=== PATIENT | female | born 1945 | race Caucasian/White ===

== ENCOUNTER 2020-01-03 19:55 | Inpatient (IN) ==
[2020-01-03] MEDS ORDERED: SODIUM CHLORIDE 0.9% 1000ML 1,000 ML IV ONE ×2 (20:30→23:22)
--- NOTE | 2020-01-03 20:33 | Emergency Department Note ---
History of Present Illness General Chief complaint: Illness Stated complaint: FEVER, ABD PAIN, NAUSEA FOR 9-10 DAYS Time Seen by Provider: 01/03/20 20:07 Source: patient and family Mode of arrival: ambulatory Limitations: no limitations History of Present Illness Provider complaint: Fever, nausea and vomiting, fatigue Onset (ago): day(s) (11) Maximum Pain Intensity: 5 Relieved By: + none Exacerbated By: + movement Associated symptoms: + fever/chills, + loss of appetite, + malaise, + nausea/vomiting and + weakness; no chest pain and no shortness of breath Treatments prior to arrival: none There is a 74-year-old female who presents from home complaining of 11 days of worsening weakness, nausea, and fevers. Patient states in this 11-day interim she has been seen at the [facility] emergency room twice as well as by her family doctor twice. She states she has had multiple rounds of lab work as well as imaging. Patient did have a negative coronavirus test, however has a second 1 pending as a precaution by her PCP. Patient states her daughter is concerned given her persistent illness and brought her here tonight. Patient states she did have one episode of vomiting today. Patient states despite being on antibiotics for what she was told was a urinary tract infection, she has had persistent fevers. Patient states the fevers are daily, waxing and waning, however had not been as high as what they were prior to the initiation of antibiotics. Patient states she has been taking cefdinir 300 mg twice a day. Pt seen during a time of high acuity and national emergency pandemic while wearing PPE. Home Medications Home Medications Medication Instructions Recorded Confirmed Type escitalopram oxalate [Lexapro] 10 mg PO DAILY 01/03/20 01/03/20 History ondansetron HCl [Zofran] 4 mg PO Q8H 01/03/20 01/03/20 History Allergies Allergy/AdvReac Type Severity Reaction Status Date / Time No Known Allergies Allergy Unverified 01/03/20 20:34 Past Med/Surg History Social History Preferred Language: Guatemalan Communication Ability: Effective Resistor Winder Required: No Beliefs That Will Affect Care: None marital status: Current Living Situation: Spouse Current Living Situation Comment: home with spouse Other Information That Helps Us Care for You: Yes (Tested for covid twice) Feels Safe at Home: Yes Safety Concerns: Feels Safe At This Time Smoking Status: Never smoker Do You Dip or Chew Tobacco: No ; Second Hand Exposure: Yes ; Tobacco Cessation Education Requested by Patient: No Hx Alcohol Use: No Hx Substance Use: No Review of Systems See HPI for pertinent positives & negatives. and A total of 10 systems reviewed and were otherwise negative Physical Exam Vital Signs Vital Signs - 24 hr 01/03/20 22:41 Pulse Rate [Apical] 96 H Pulse Rhythm [Apical] Regular Pulse Strength [Apical] Normal Respiratory Rate 16 Respiratory Effort / Characteristics Non-Labored Respiratory Depth Normal Respiratory Pattern Regular Blood Pressure [Left Arm] 101/54 L Blood Pressure Mean [Left Arm] 69 Blood Pressure Position [Left Arm] Lying Pulse Oximetry 96 Oxygen Delivery Method Room Air GENERAL: alert, ill appearing, well nourished, no distress, non-toxic EYE EXAM: normal conjunctiva, PERRL and EOM's grossly intact OROPHARYNX: no exudate, no erythema, lips, buccal mucosa, and tongue normal and mucous membranes are moist NECK: supple, no nuchal rigidity, no adenopathy, non-tender LUNGS: Clear to auscultation. Normal chest wall mechanics, no w/r/r HEART: no murmurs, S1 normal and S2 normal ABDOMEN: abdomen soft, non-tender, normo-active bowel sounds, no masses, no rebound or guarding. BACK: Back is symmetrical on inspection and there is no deformity, no midline tenderness, no CVA tenderness. SKIN: no rashes and no bruising UPPER EXTREMITIES: upper extremities are grossly normal. FROM, nml pulses b/l. LOWER EXTREMITIES: No pitting edema. FROM, nml pulses b/l. NEURO EXAM: Normal sensorium, cranial nerves II-XII grossly intact, normal speech, no gross weakness of arms, no gross weakness of legs. Gross sensation intact. 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 2099: Discussed recent symptoms and care with daughter. 2149: Pt and daughter updated on results and are in agreement with plan for additional inpatient evaluation and mgmt. patient just had CT angiography of the chest performed yesterday during her ER visit which was negative for PE. No mention of pericardial effusion. No lymphadenopathy, no aneurysm or dissection. CT of the abdomen and pelvis was also performed which had no acute findings. 2211: Case discussed with Dr. Oliveros for additional inpatient management. Administered Medications Escitalopram Oxalate (Lexapro Tab) 10 mg PO DAILY MARJAN Stop: 02/03/20 08:59 Last Admin: 01/04/20 08:07 Dose: 10 mg Documented by: [id number] Potassium Chloride/Dextrose/Sod Cl (D5nss + 20meq Kcl) 20 meq in 1,000 mls @ 125 mls/hr IV .Q8H MARJAN Stop: 02/02/20 23:29 Last Admin: 01/04/20 20:52 Dose: 125 mls/hr Documented by: [id number] Infusion: 01/04/20 20:31 Dose: 125 mls/hr Documented by: [id number] Infusion: 01/04/20 13:15 Dose: 125 mls/hr Documented by: [id number] Infusion: 01/04/20 12:09 Dose: 0 mls/hr Documented by: [id number] Admin: 01/04/20 11:25 Dose: 125 mls/hr Documented by: [id number] Infusion: 01/04/20 11:05 Dose: 125 mls/hr Documented by: [id number] Infusion: 01/04/20 09:20 Dose: 125 mls/hr Documented by: [id number] Infusion: 01/04/20 08:05 Dose: 0 mls/hr Documented by: [id number] Admin: 01/04/20 01:50 Dose: 125 mls/hr Documented by: [id number] Doxycycline Hyclate 100 mg/ (Dextrose) 110 mls @ 50 mls/hr IV Q12H MARJAN Stop: 01/18/20 01:59 Last Infusion: 01/04/20 16:23 Dose: 0 mls/hr Documented by: [id number] Admin: 01/04/20 14:08 Dose: 50 mls/hr Documented by: [id number] Infusion: 01/04/20 04:44 Dose: 0 mls/hr Documented by: [id number] Admin: 01/04/20 02:32 Dose: 50 mls/hr Documented by: [id number] Ceftriaxone Sodium 2,000 mg/ (Dextrose) 70 mls @ 100 mls/hr IV Q24H MARJAN; Protocol Stop: 01/14/20 01:59 Last Infusion: 01/04/20 02:34 Dose: 0 mls/hr Documented by: [id number] Admin: 01/04/20 01:52 Dose: 100 mls/hr Documented by: [id number] Acetaminophen (Ofirmev) 1,000 mg in 100 mls @ 400 mls/hr IV Q8H PRN PRN Reason: Pain or Fever Stop: 01/07/20 03:47 Last Infusion: 01/04/20 05:01 Dose: 0 mls/hr Documented by: [id number] Admin: 01/04/20 04:46 Dose: 400 mls/hr Documented by: [id number] Discontinued Medications Sodium Chloride (Nss 1000ml) 1,000 mls @ 999 mls/hr IV .Q1H1M ONE Stop: 01/03/20 21:30 Last Infusion: 01/03/20 22:43 Dose: 0 mls/hr Documented by: [id number] Admin: 01/03/20 21:51 Dose: 999 mls/hr Documented by: [id number] Sodium Chloride (Nss 1000ml) 1,000 mls @ 125 mls/hr IV .Q8H MARJAN Stop: 02/02/20 21:44 Last Infusion: 01/04/20 01:16 Dose: 0 mls/hr Documented by: [id number] Infusion: 01/04/20 01:16 Dose: 0 mls/hr Documented by: [id number] Admin: 01/03/20 22:38 Dose: 125 mls/hr Documented by: [id number] Prochlorperazine (Compazine) 1 mls @ 1 mls/min IV ONE ONE Stop: 01/03/20 22:03 Last Admin: 01/03/20 22:38 Dose: 1 mls/min Documented by: [id number] Sodium Chloride (Nss 1000ml) 1,000 mls @ 999 mls/hr IV .Q1H1M ONE Stop: 01/04/20 00:22 Last Infusion: 01/04/20 00:23 Dose: 0 mls/hr Documented by: [id number] Admin: 01/03/20 23:22 Dose: 999 mls/hr Documented by: [id number] Potassium Chloride (K Jameel / Wtr) 10 meq in 100 mls @ 100 mls/hr IV Q1H STA Stop: 01/04/20 00:27 Last Infusion: 01/04/20 01:26 Dose: 0 mls/hr Documented by: [id number] Admin: 01/04/20 00:26 Dose: 100 mls/hr Documented by: [id number] Sodium Chloride (Nss 1000ml) 1,000 mls @ 999 mls/hr IV .Q1H1M ONE Stop: 01/04/20 08:58 Last Infusion: 01/04/20 09:19 Dose: 0 mls/hr Documented by: [id number] Admin: 01/04/20 08:05 Dose: 999 mls/hr Documented by: [id number] Sodium Chloride (Nss 1000ml) 1,000 mls @ 999 mls/hr IV .Q1H1M ONE Stop: 01/04/20 12:36 Last Infusion: 01/04/20 13:17 Dose: 0 mls/hr Documented by: [id number] Admin: 01/04/20 12:09 Dose: 999 mls/hr Documented by: [id number] Prochlorperazine 5 mg/ Syringe 5 mls @ 5 mls/min IV ONE ONE Stop: 01/04/20 17:46 Last Admin: 01/04/20 18:13 Dose: 5 mls/min Documented by: [id number] Potassium Chloride (Klor-Con M20) 40 meq PO NOW STA Stop: 01/03/20 21:34 Last Admin: 01/03/20 22:38 Dose: 40 meq Documented by: [id number] Medical Decision Making Differential Diagnosis Differential diagnosis: Etiologies such as viral syndrome, otitis, pharyngitis, pneumonia, influenza, meningitis, urinary tract infection, sepsis, bacteremia, as well as others were entertained. Medical Records Attestation: I reviewed the patient's medical records. Home Medications Current Medication List: was personally reviewed by me Laboratory Data Attestation: I reviewed the patient's lab results. Result diagrams: 01/04/20 07:21 01/04/20 07:21 Lab Results 01/03/20 01/03/20 01/03/20 Range/Units 20:50 20:50 20:50 WBC 8.81 (4.8-10.8) K/uL RBC 3.03 L (4.2-5.4) M/uL Hgb 9.2 L (12.0-16.0) g/dL Hct 27.0 L (37-47) % MCV 89.1 (80-100) fL MCH 30.4 (25-34) pg MCHC 34.1 (32-36) g/dL RDW Std Deviation 55.7 H (36.4-46.3) fL RDW Coeff of Issa 17.0 H (11.5-14.5) % Plt Count 153 (130-400) K/uL MPV 9.9 (7.4-10.4) fL Immature Gran % (Auto) 0.5 % Neut % (Auto) 87.3 % Lymph % (Auto) 7.9 % Gilliam % (Auto) 4.1 % Eos % (Auto) 0.0 % Baso % (Auto) 0.2 % Neut # (Auto) 7.69 H (1.4-6.5) K/uL Lymph # (Auto) 0.70 L (1.2-3.4) K/uL Gilliam # (Auto) 0.36 (0.11-0.59) K/uL Eos # (Auto) 0.00 (0-0.5) K/uL Baso # (Auto) 0.02 (0-0.2) K/uL Immature Gran # (Auto) 0.04 H (0.00-0.02) K/uL PT 12.4 H (9.0-12.0) Seconds INR 1.2 H (0.9-1.1) APTT 30.2 (21.0-31.0) Seconds PTT Ratio 1.1 Sodium 136 (136-145) mmol/L Potassium 3.0 L (3.5-5.1) mmol/L Chloride 104 (98-107) mmol/L Carbon Dioxide 23 (21-32) mmol/L Anion Gap 9.0 (3-11) BUN 16 (7-18) mg/dl Creatinine 1.07 (0.6-1.2) mg/dl Est Cr Clr Drug Dosing Not Reportable Est GFR ( Amer) 58.8 Est GFR (Non-Af Amer) 50.7 BUN/Creatinine Ratio 14.5 (10-20) Glucose 81 (70-99) mg/dl Lactate (0.4-2.0) mmol/L Calcium 8.1 L (8.5-10.1) mg/dl Magnesium 2.0 (1.8-2.4) mg/dl Total Bilirubin 1.1 H (0.2-1) mg/dl AST 140 H (15-37) U/L ALT 87 H (12-78) U/L Alkaline Phosphatase 175 H (45-117) U/L Troponin I 0.057 H* (0-0.045) ng/ml Total Protein 7.3 (6.4-8.2) gm/dl Albumin 2.2 L (3.4-5.0) gm/dl Globulin 5.1 H (2.5-4.0) gm/dl Albumin/Globulin Ratio 0.4 L (0.9-2) Lipase (73-393) U/L Procalcitonin (0-0.5) ng/ml TSH (0.300-4.500) uIu/ml Free T4 (0.8-1.6) ng/dl Urine Color Urine Appearance (Clear) Urine pH (4.5-7.5) Ur Specific [place] (1.000-1.030) Urine Protein (Negative) Urine Glucose (UA) (Negative) Urine Ketones (Negative) Urine Blood (Negative) Urine Nitrite (Negative) Urine Bilirubin (Negative) Urine Urobilinogen (Negative) Ur Leukocyte Esterase (Negative) Urine WBC (Auto) (0-5) /hpf Urine RBC (Auto) (0-4) /hpf U Hyaline Cast (Auto) (0-5) /lpf U Epithel Cells (Auto) (0-5) /lpf Urine Bacteria (Auto) (Negative) Ur Renal Epithelial Cell Amorphous Sediment (None Prsent) Urine Yeast Anaplasma Smear See Comment A Anaplasma Comment Pos for Anaplasma Lyme Disease IgG Ab (Negative) Lyme Disease IgM Ab (Negative) 01/03/20 01/03/20 01/03/20 Range/Units 20:50 20:50 20:50 WBC (4.8-10.8) K/uL RBC (4.2-5.4) M/uL Hgb (12.0-16.0) g/dL Hct (37-47) % MCV (80-100) fL MCH (25-34) pg MCHC (32-36) g/dL RDW Std Deviation (36.4-46.3) fL RDW Coeff of Issa (11.5-14.5) % Plt Count (130-400) K/uL MPV (7.4-10.4) fL Immature Gran % (Auto) % Neut % (Auto) % Lymph % (Auto) % Gilliam % (Auto) % Eos % (Auto) % Baso % (Auto) % Neut # (Auto) (1.4-6.5) K/uL Lymph # (Auto) (1.2-3.4) K/uL Gilliam # (Auto) (0.11-0.59) K/uL Eos # (Auto) (0-0.5) K/uL Baso # (Auto) (0-0.2) K/uL Immature Gran # (Auto) (0.00-0.02) K/uL PT (9.0-12.0) Seconds INR (0.9-1.1) APTT (21.0-31.0) Seconds PTT Ratio Sodium (136-145) mmol/L Potassium (3.5-5.1) mmol/L Chloride (98-107) mmol/L Carbon Dioxide (21-32) mmol/L Anion Gap (3-11) BUN (7-18) mg/dl Creatinine (0.6-1.2) mg/dl Est Cr Clr Drug Dosing Est GFR ( Amer) Est GFR (Non-Af Amer) BUN/Creatinine Ratio (10-20) Glucose (70-99) mg/dl Lactate (0.4-2.0) mmol/L Calcium (8.5-10.1) mg/dl Magnesium (1.8-2.4) mg/dl Total Bilirubin (0.2-1) mg/dl AST (15-37) U/L ALT (12-78) U/L Alkaline Phosphatase (45-117) U/L Troponin I (0-0.045) ng/ml Total Protein (6.4-8.2) gm/dl Albumin (3.4-5.0) gm/dl Globulin (2.5-4.0) gm/dl Albumin/Globulin Ratio (0.9-2) Lipase (73-393) U/L Procalcitonin 21.36 H (0-0.5) ng/ml TSH 0.273 L (0.300-4.500) uIu/ml Free T4 1.53 (0.8-1.6) ng/dl Urine Color Urine Appearance (Clear) Urine pH (4.5-7.5) Ur Specific [place] (1.000-1.030) Urine Protein (Negative) Urine Glucose (UA) (Negative) Urine Ketones (Negative) Urine Blood (Negative) Urine Nitrite (Negative) Urine Bilirubin (Negative) Urine Urobilinogen (Negative) Ur Leukocyte Esterase (Negative) Urine WBC (Auto) (0-5) /hpf Urine RBC (Auto) (0-4) /hpf U Hyaline Cast (Auto) (0-5) /lpf U Epithel Cells (Auto) (0-5) /lpf Urine Bacteria (Auto) (Negative) Ur Renal Epithelial Cell Amorphous Sediment (None Prsent) Urine Yeast Anaplasma Smear Anaplasma Comment Lyme Disease IgG Ab Negative (Negative) Lyme Disease IgM Ab Negative (Negative) 01/03/20 01/03/20 01/03/20 Range/Units 20:50 21:36 22:40 WBC (4.8-10.8) K/uL RBC (4.2-5.4) M/uL Hgb (12.0-16.0) g/dL Hct (37-47) % MCV (80-100) fL MCH (25-34) pg MCHC (32-36) g/dL RDW Std Deviation (36.4-46.3) fL RDW Coeff of Issa (11.5-14.5) % Plt Count (130-400) K/uL MPV (7.4-10.4) fL Immature Gran % (Auto) % Neut % (Auto) % Lymph % (Auto) % Gilliam % (Auto) % Eos % (Auto) % Baso % (Auto) % Neut # (Auto) (1.4-6.5) K/uL Lymph # (Auto) (1.2-3.4) K/uL [place]illi[place] # (Auto) (0.11-0.59) K/uL Eos # (Auto) (0-0.5) K/uL Baso # (Auto) (0-0.2) K/uL Immature Gran # (Auto) (0.00-0.02) K/uL PT (9.0-12.0) Seconds INR (0.9-1.1) APTT (21.0-31.0) Seconds PTT Ratio Sodium (136-145) mmol/L Potassium (3.5-5.1) mmol/L Chloride (98-107) mmol/L Carbon Dioxide (21-32) mmol/L Anion Gap (3-11) BUN (7-18) mg/dl Creatinine (0.6-1.2) mg/dl Est Cr Clr Drug Dosing Est GFR ( Amer) Est GFR (Non-Af Amer) BUN/Creatinine Ratio (10-20) Glucose (70-99) mg/dl Lactate 1.8 (0.4-2.0) mmol/L Calcium (8.5-10.1) mg/dl Magnesium (1.8-2.4) mg/dl Total Bilirubin (0.2-1) mg/dl AST (15-37) U/L ALT (12-78) U/L Alkaline Phosphatase (45-117) U/L Troponin I (0-0.045) ng/ml Total Protein (6.4-8.2) gm/dl Albumin (3.4-5.0) gm/dl Globulin (2.5-4.0) gm/dl Albumin/Globulin Ratio (0.9-2) Lipase 196 (73-393) U/L Procalcitonin (0-0.5) ng/ml TSH (0.300-4.500) uIu/ml Free T4 (0.8-1.6) ng/dl Urine Color Dark Yellow Urine Appearance Cloudy A (Clear) Urine pH 5.5 (4.5-7.5) Ur Specific [place] 1.030 (1.000-1.030) Urine Protein 2+ H (Negative) Urine Glucose (UA) Negative (Negative) Urine Ketones Trace H (Negative) Urine Blood 1+ H (Negative) Urine Nitrite Negative (Negative) Urine Bilirubin 1+ H (Negative) Urine Urobilinogen Negative (Negative) Ur Leukocyte Esterase Trace H (Negative) Urine WBC (Auto) 10-30 H (0-5) /hpf Urine RBC (Auto) 0-4 (0-4) /hpf U Hyaline Cast (Auto) 1-5 (0-5) /lpf U Epithel Cells (Auto) >30 H (0-5) /lpf Urine Bacteria (Auto) Negative (Negative) Ur Renal Epithelial Cell Not Reportable Amorphous Sediment Present A (None Prsent) Urine Yeast Not Reportable Anaplasma Smear Anaplasma Comment Lyme Disease IgG Ab (Negative) Lyme Disease IgM Ab (Negative) Imaging Data Radiologist's Impression: SINGLE VIEW CHEST CLINICAL HISTORY: Sepsis. FINDINGS: An AP, portable, upright chest radiograph is obtained. No prior studies are available for comparison at the time of dictation. The examination is degraded by portable technique and patient rotation. The heart is enlarged. The pulmonary vasculature is noncongested. Mild atelectasis is seen at the lung bases. No airspace consolidation or large pleural effusion is identified. No pneumothorax is seen. The skeletal structures are osteopenic. The bony thorax is grossly intact. IMPRESSION: Cardiomegaly with no active disease in the chest. ACT 112: Negative or not required by law. Electronically signed by: Sagar England M.D. 01/03/2020 9:53 PM ECG Data Attestation: I personally reviewed and interpreted this ECG as follows: Indication: + weakness Rate (beats per minute): 93 Rhythm: + normal sinus ECG Intervals/blocks: + Normal QRS and + Normal QT ECG [place]: + Normal ECG ST segments: + Normal ST segments Comparison ECG Date: from (01/02/2020) Blood Pressure Blood Pressure Findings: Normal blood pressure MDM Narrative This is elderly female who presents the emergency room complaining of worsening symptoms over the last 11 days. Patient has been seen and evaluated both in another ER as well as by her outpatient PCP. Patient continues to feel worse. Patient has been on cefdinir for a presumed UTI. I was able to review some records, and I did discuss these with her daughter who is also present as she is concerned. Patient found to have an elevated troponin here. Patient has had 2- outpatient coronavirus test. I did add a Lyme which was negative. Anaplasmosis was sent in addition and is pending at the time my discussion with the hospitalist. Patient with no evidence of acute CHF, no EKG changes and no history of coronary artery disease. I do not suspect ACS, or PE. Patient has had increased anemia recently and has been undergoing outpatient evaluation. Patient did have recent EGD and is scheduled for additional outpatient colonosco py. It is unclear if worsening anemia is creating demand ischemia causing an elevated troponin. Patient initially hypotensive here, however did respond to IV fluid bolus. Patient otherwise remained hemodynamically stable in the emergency room. Given abnormal findings and concern for worsening condition and failed outpatient treatment, case discussed with hospitalist. I am not convinced that patient did have a UTI that was contributing to her symptoms as the UA that I found in the EMR was not convincing, an outpatient urine culture was contaminated. I discussed all results with the patient and her daughter and they were in agreement with the plan for additional inpatient management. I do not suspect acute vascular emergency. No evidence of bacteremia/sepsis. An order was placed for continuous cardiac monitoring. The monitor shows a rate of 80_ with _normal sinus rhythm. Impression & Plan Fever, Elevated troponin, Generalized weakness, Abnormal LFTs, Anemia, Acute hypotension Discharge Plan Visit Data *Final* Discharge Date/Time: 01/04/20 01:09 Chief Complaint: Illness Stated Complaint: FEVER, ABD PAIN, NAUSEA FOR 9-10 DAYS ED Provider: Leanna Rea Discharge Problem: Fever, Elevated troponin, Generalized weakness, Abnormal LFTs, Anemia, Acute hypotension Patient Disposition: Admitted As Inpatient Discharge Instructions Interventions: ED Discharge Assessment Last Done: 01/04/20 01:09 Discharge Problem: Fever Qualifiers: Fever type: due to other condition Qualified Code(s): R50.81 - Fever presenting with conditions classified elsewhere Anemia Qualifiers: Anemia type: unspecified type Qualified Code(s): D64.9 - Anemia, unspecified
[2020-01-03 21:06] LABS: Basophils # (auto) 0.02 K/uL (0-0.2); Basophils % (auto) 0.2 %; Hemoglobin 9.2 g/dL (12.0-16.0); Immature Granulocytes # (auto) 0.04 K/uL (0.00-0.02); Immature Granulocytes % (auto) 0.5 %; Lymphocytes % (auto) 7.9 %; Mean Corpuscular Hemoglobin 30.4 pg (25-34); Mean Corpuscular Hgb Conc 34.1 g/dL (32-36); Mean Corpuscular Volume 89.1 fL (80-100); Mean Platelet Volume 9.9 fL (7.4-10.4); Monocytes # (auto) 0.36 K/uL (0.11-0.59); Monocytes % (auto) 4.1 %; Neutrophils # (auto) 7.69 K/uL (1.4-6.5); Neutrophils % (auto) 87.3 %; Platelet Count 153 K/uL (130-400); RDW Standard Deviation 55.7 fL (36.4-46.3); Red Blood Count 3.03 M/uL (4.2-5.4); White Blood Count 8.81 K/uL (4.8-10.8)
[2020-01-03 21:18] LABS: INR 1.2 (0.9-1.1); Partial Thromboplastin Ratio 1.1; Partial Thromboplastin Time 30.2 Seconds (21.0-31.0); Prothrombin Time 12.4 Seconds (9.0-12.0)
[2020-01-03 21:24] LABS: Alanine Aminotransferase 87 U/L (12-78); Albumin Level 2.2 gm/dl (3.4-5.0); Aspartate Aminotransferase 140 U/L (15-37); BUN Creatinine Ratio 14.5 (10-20); Blood Urea Nitrogen 16 mg/dl (7-18); Calcium 8.1 mg/dl (8.5-10.1); Carbon Dioxide 23 mmol/L (21-32); Chloride 104 mmol/L (98-107); Est GFR (African American) 58.8; Est GFR (Non-African American) 50.7; Glucose 81 mg/dl (70-99); Sodium 136 mmol/L (136-145)
[2020-01-03] MEDS ORDERED: POTASSIUM CHLORIDE 20 MEQ TABCR PO STA (21:33)
[2020-01-03 21:36] LABS: Albumin Globulin Ratio 0.4 (0.9-2); Alkaline Phosphatase 175 U/L (45-117); Bilirubin,Total 1.1 mg/dl (0.2-1); Globulin 5.1 gm/dl (2.5-4.0); Total Protein 7.3 gm/dl (6.4-8.2); Troponin I 0.057 ng/ml (0-0.045)
[2020-01-03] MEDS ORDERED: SODIUM CHLORIDE 0.9% 1000ML 1,000 ML IV SCH (21:45)
[2020-01-03 21:52] LABS: Thyroid Stimulating Hormone 0.273 uIu/ml (0.300-4.500)
--- NOTE | 2020-01-03 21:55 | XRay Report ---
SINGLE VIEW CHEST CLINICAL HISTORY: Sepsis. FINDINGS: An AP, portable, upright chest radiograph is obtained. No prior studies are available for c omparison at the time of dictation. The examination is degraded by portable technique and patient rot ation. The heart is enlarged. The pulmonary vasculature is noncongested. Mild atelectasis is seen at the lung bases. No airspace consolidation or large pleural effusion is identified. No pneumothorax i s seen. The skeletal structures are osteopenic. The bony thorax is grossly intact. IMPRESSION: Cardiomegaly with no active disease in the chest. ACT 112: Negative or not required by law. Electronically signed by: Sagar England M.D. 01/03/2020 9:53 PM
[2020-01-03 21:57] LABS: Lyme Ab IgG w/WB Rflx Negative (Negative); Lyme Ab IgM w/WB Rflx Negative (Negative)
[2020-01-03] MEDS ORDERED: PROCHLORPERAZINE 1 ML IV ONE (22:02)
[2020-01-03 22:05] LABS: T4 Free Thyroxine 1.53 ng/dl (0.8-1.6)
[2020-01-03 23:05] LABS: Appearance Urine Cloudy (Clear); Bacteria Urine Automated Negative (Negative); Blood Urine 1+ (Negative); Color Urine Dark Yellow; Epithelial Cell Urine Auto >30 /lpf (0-5); Glucose Urine UA Negative (Negative); Ketones Urine Trace (Negative); Leukocyte Esterase Urine Trace (Negative); Nitrite Urine Negative (Negative); Protein Urine 2+ (Negative); RBC Urine Automated 0-4 /hpf (0-4); Urobilinogen Urine Negative (Negative); pH Urine 5.5 (4.5-7.5)
[2020-01-03 23:12] LABS: Bilirubin Urine 1+ (Negative)
[2020-01-03] MEDS ORDERED: POTASSIUM CHLORIDE / WTR 10 MEQ/100 ML PLCT IV STA (23:28)
[2020-01-04 00:03] LABS: Amorphous Sediment Urine Present (None Prsent)
[2020-01-04] MEDS ORDERED: ACETAMINOPHEN 325 MG TAB PO PRN (01:16)
[2020-01-04] MEDS ORDERED: NITROGLYCERIN SL 0.4 MG/TAB TAB SL PRN (01:16)
[2020-01-04 01:29] LABS: Anaplasmosis Smear(Rpt to DOH) Pos for Anaplasma
[2020-01-04] MEDS: D5NSS + 20MEQ KCL 20 MEQ/1,000 ML BAG IV SCH ×4 (01:50→23:38)
[2020-01-04] MEDS: cefTRIAXone SODIUM 2,000 MG in DEXTROSE 5% 50 ML IV SCH (01:52)
--- NOTE | 2020-01-04 02:12 | History and Physical Report ---
DATE OF ADMISSION: 01/03/2020 CHIEF COMPLAINT: Fevers, not feeling well. HISTORY OF PRESENT ILLNESS: This is a 74-year-old female with past medical history significant for osteoporosis, depression, comes because of last 11 days she is having fever every day, some days high, some days low, highest was 104 degrees. She went to the [facility] a couple of times on 12/27/2019 and 01/02/2020. Her COVID test on 12/27/2019 was negative and she had another test done last Sunday with her PCP, but results are still pending. There is question of some UTI and she was started on antibiotic on last visit to [facility]. The patient still has headaches, shortness of breath on exertion, very nauseous, not eating anything, some abdominal discomfort. No diarrhea, no burning micturition, no blood in the stools. No earache, no runny nose, no sore throat, no dysphagia, no loss of sense of smell or taste. No exposure to COVID patients. [place]. [place], but she never goes outside except for the backyard. Denies any tick bites. Her lab work done at [facility]. Her platelets were 109 on 12/31/2019 and her LFTs are slightly elevated. She has some petechial rash in the abdomen. Imaging studies also done in [facility], CT of the chest and CT abdomen and pelvis were unremarkable. As she was not getting better, she came here. Currently, she is afebrile. She also had leukopenia of 3.0 on labs on December 26 that has improved. Platelets are improved.Today her INR is 1.2. Her total bilirubin 1.1, AST 140, ALT 87, alkaline phosphatase 175 and troponin is 0.05. Procalcitonin was 21.3. Urine is slightly positive for leukocyte esterase. Chest x-ray, no acute disease. ALLERGIES: No known drug allergies. PAST MEDICAL HISTORY: As mentioned above. PAST SURGICAL HISTORY: Breast lesion excision, EGDs. MEDICATIONS: Lexapro 10 mg p.o. daily, Zofran 4 mg p.o. q. 8 hours p.r.n. FAMILY HISTORY: Not in file. SOCIAL HISTORY: . No smoking. No alcohol, no drug use. REVIEW OF SYMPTOMS: As per HPI. Rest of review of symptoms negative. PHYSICAL EXAMINATION: GENERAL: The patient is of moderate build, not in acute distress. VITAL SIGNS: Temperature 37.5, pulse 96, respiratory rate 16, blood pressure 101/54, oxygen 96% room air. HEENT: No pallor, no icterus. Pupils equal, round, reactive to light. Oral mucosa dry. NECK: No JVD, no neck masses. CARDIOVASCULAR: S1, S2 heard, regular rate and rhythm, no murmur, no gallop. RESPIRATORY SYSTEM: Normal AP diameter. No accessory muscle use. No wheezing, no crackles. ABDOMEN: Soft, bowel sounds present. Mild discomfort. No guarding, no rigidity. No distention. CENTRAL NERVOUS SYSTEM: Cranial nerves II-XII grossly intact. Nonfocal. EXTREMITIES: No edema, no erythema. SKIN: Mild petechial rash seen in the abdomen. LABORATORY DATA: WBC 8.8, hemoglobin 9.2, hematocrit 27, platelets 153. PT 12.4, INR 1.2, APTT 30.2. Sodium 136, potassium 3, chloride 104, bicarbonate 23, BUN 16, creatinine 1.07, serum glucose 81. Lactate 1.8, calcium 8.1, total bilirubin 1.1, AST 140, ALT 87, alkaline phosphatase is 175. Troponin I 0.05. Lipase 196. Procalcitonin 21.3. TSH 0.2, free T4 1.5. Urinalysis cloudy, +2 protein, trace ketones, trace leukocyte esterase. Lyme screen, IgG and IgM negative. IMAGING: Chest x-ray: No acute disease in the chest. EKG: Normal sinus rhythm, rate of 93, no acute ST changes seen. ASSESSMENT AND PLAN: This is a 74-year-old female who presents with ongoing fever since last 10-11 days. 1. Ongoing illness with fever for the last 10-11 days, nausea, not feeling well: COVID test done on 12/27/2019 was negative, another test done last Sunday is pending. No exposure to COVID. No loss of sense of smell or taste. Initial lab work done in [place] showed her leukopenia and thrombocytopenia. Her AST and ALT is also elevated, looks like she lives in the wooded area , though she does not go outside except her yard. Most likely tick-borne illnesses, we empirically started on IV Rocephin and IV doxycycline. We will continue airborne isolation precautions until the recent COVID test comes back. Monitor in the med/tele. 2. Mild elevation of troponin: EKG unremarkable, most likely secondary to ongoing infectious process. We will follow serial enzymes, echocardiogram and consult cardiology for further recommendations. 3. Hypokalemia: Will replace. 4. Depression: Continue Lexapro. 5. Deep venous thrombosis prophylaxis: Sequential compression devices. DISPOSITION: Admit to med/tele. Expect discharge home and follow with family doctor. Level 1 full code. 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 MTDD
[2020-01-04] MEDS: DOXYCYCLINE HYCLATE 100 MG in DEXTROSE 5% 100 ML IV SCH ×2 (02:32→14:08)
[2020-01-04] MEDS ORDERED: ACETAMINOPHEN 1,000 MG/100 ML VIAL IV PRN (03:48)
[2020-01-04 07:58] LABS: Basophils # (auto) 0.01 K/uL (0-0.2); Basophils % (auto) 0.1 %; Hematocrit (blood only) 22.3 % (37-47); Hemoglobin 7.5 g/dL (12.0-16.0); Immature Granulocytes # (auto) 0.03 K/uL (0.00-0.02); Immature Granulocytes % (auto) 0.4 %; Lymphocytes # (auto) 1.01 K/uL (1.2-3.4); Lymphocytes % (auto) 14.8 %; Mean Corpuscular Hemoglobin 30.4 pg (25-34); Mean Corpuscular Hgb Conc 33.6 g/dL (32-36); Mean Corpuscular Volume 90.3 fL (80-100); Mean Platelet Volume 10.6 fL (7.4-10.4); Monocytes # (auto) 0.42 K/uL (0.11-0.59); Monocytes % (auto) 6.1 %; Neutrophils # (auto) 5.37 K/uL (1.4-6.5); Neutrophils % (auto) 78.6 %; Platelet Count 132 K/uL (130-400); RDW Coefficient of Variation 17.1 % (11.5-14.5); RDW Standard Deviation 56.5 fL (36.4-46.3); Red Blood Count 2.47 M/uL (4.2-5.4); White Blood Count 6.84 K/uL (4.8-10.8)
[2020-01-04] MEDS ORDERED: SODIUM CHLORIDE 0.9% 1000ML 1,000 ML IV ONE ×2 (07:58→11:36)
[2020-01-04] MEDS: ESCITALOPRAM OXALATE 10 MG TAB PO SCH (08:07)
[2020-01-04 08:28] LABS: RBC Morphology Unremarkable
[2020-01-04 08:29] LABS: BUN Creatinine Ratio 13.5 (10-20); Calcium 7.4 mg/dl (8.5-10.1); Creatinine Clr Calc Pharmacy 39.6 ml/min; Est GFR (African American) 66.2; Est GFR (Non-African American) 57.1; Potassium 3.5 mmol/L (3.5-5.1)
--- NOTE | 2020-01-04 11:32 | Hospitalist Progress Note ---
Date of Service January 04, 2020 Assessment & Plan (1) Fever: (2) Generalized weakness: (3) Abnormal LFTs: Febrile illness Leukopenia noted at previous ER visit at [facility] resolved Elevated LFT Initial results show positive test to anasplasma Continue ceftriazone and doxycycline Patient currently hypotensive during evaluation. Will give IVF resuscitation and move patient to PCU for closer monitoring Will continue to reassess Based on my discussion with patient and daughter as noted above and recent COVID test, isolation will be discontinued. Follow up blood cultures and outstanding results (4) Elevated troponin: History and EKG not suggestive of ACS I also discussed this with [employer] Agent Will get 2D echo and monitor (5) Depression: Continue home lexapro (6) Anemia: Baseline Hb from review of previous blood work on [facility] is 9 Hb on admission is 9.2 Currently 7.5 this AM. Likely febrile illness + dilutional as patient has received over 3L IVF and all cell lines dropped Will monitor Transfuse PRN to keep Hb >7 (7) DVT prophylaxis: SCD for now Admission and Anticipated Discharge Date Admission Date: January 03, 2020 Subjective Patient seen and examined Reports malaise, mild dyspnea on moderate exertion and weakness Fever episode this AM 39.4 at 4;45am Denied any chest pain, cough, palpitation Reports no headache or nausea at this time. Denied any URI symptoms Denied any abd pain at this time Reported some watery diarrhea this AM Review of [facility] records showed COVID test from 12/27/2019 was negative. Spoke with daughter on the phone who reported that patient has not traveled, been visited since that test. She stated that her PCP sent another COVID after that because they were not sure what was causing her fevers. Patient also acknowledged that she has not been visited by anyone since previous testing and only stayed at home with her / Physical Exam Constitutional: + well hydrated; no acute distress Eyes: PERRL, conjunctivae normal, anicteric sclerae ENMT: external ear and nose normal, oropharynx normal Respiratory: normal respiratory effort, lungs clear to auscultation Cardiovascular: RRR, S1 S2, no pedal edema Gastrointestinal (Abdomen): normal bowel sounds, soft, nontender, no hepatosplenomegaly Neurologic: PERRL, EOMI, accommodation nl, no face palsy, no dysarthria Psychiatric: A+Ox3, euthymic affect Results & Data Results & Data ([facility]) Vital Signs (Past 12 Hours) Vital Signs Temp Pulse Pulse Resp BP BP BP 01/04/20 08:20 90 01/04/20 07:58 37.0 C 86 17 76/44 L 96/41 L 01/04/20 06:29 37.2 C 01/04/20 04:45 39.4 C H 109 H 24 93/57 L 01/04/20 01:30 104 H 01/04/20 01:16 01/04/20 01:09 96 H 18 96/51 L 01/04/20 01:00 37.6 C H 103 H 16 97/59 L Pulse Ox Pulse Ox 01/04/20 08:20 01/04/20 07:58 91 01/04/20 06:29 01/04/20 04:45 90 01/04/20 01:30 01/04/20 01:16 95 01/04/20 01:09 93 01/04/20 01:00 95 Laboratory Results Laboratory Results - last 24 hr 01/03/20 01/03/20 01/03/20 20:50 20:50 20:50 WBC 8.81 RBC 3.03 L Hgb 9.2 L Hct 27.0 L MCV 89.1 MCH 30.4 MCHC 34.1 RDW Std Deviation 55.7 H RDW Coeff of Issa 17.0 H Plt Count 153 MPV 9.9 Immature Gran % (Auto) 0.5 Neut % (Auto) 87.3 Lymph % (Auto) 7.9 [place] % (Auto) 4.1 Eos % (Auto) 0.0 Baso % (Auto) 0.2 Neut # (Auto) 7.69 H Lymph # (Auto) 0.70 L [place] # (Auto) 0.36 Eos # (Auto) 0.00 Baso # (Auto) 0.02 Immature Gran # (Auto) 0.04 H RBC Morphology Peripher Smr Path Cons Pending PT 12.4 H INR 1.2 H APTT 30.2 PTT Ratio 1.1 Sodium 136 Potassium 3.0 L Chloride 104 Carbon Dioxide 23 Anion Gap 9.0 BUN 16 Creatinine 1.07 Est Cr Clr Drug Dosing Not Reportable Est GFR ( Amer) 58.8 Est GFR (Non-Af Amer) 50.7 BUN/Creatinine Ratio 14.5 Glucose 81 Lactate Calcium 8.1 L Magnesium 2.0 Total Bilirubin 1.1 H AST 140 H ALT 87 H Alkaline Phosphatase 175 H Troponin I 0.057 H* Total Protein 7.3 Albumin 2.2 L Globulin 5.1 H Albumin/Globulin Ratio 0.4 L Lipase Procalcitonin TSH Free T4 Urine Color Urine Appearance Urine pH Ur Specific [place] Urine Protein Urine Glucose (UA) Urine Ketones Urine Blood Urine Nitrite Urine Bilirubin Urine Urobilinogen Ur Leukocyte Esterase Urine WBC (Auto) Urine RBC (Auto) U Hyaline Cast (Auto) U Epithel Cells (Auto) Urine Bacteria (Auto) Ur Renal Epithelial Cell Amorphous Sediment Urine Yeast Anaplasma Smear See Comment A Anaplasma Comment Pos for Anaplasma Lyme Disease IgG Ab Lyme Disease IgM Ab E. chaffeensis IgG Ab E. chaffeensis IgM Ab E. chaffeensis Interp E. chaffeensis Comment 01/03/20 01/03/20 01/03/20 20:50 20:50 20:50 WBC RBC Hgb Hct MCV MCH MCHC RDW Std Deviation RDW Coeff of Issa Plt Count MPV Immature Gran % (Auto) Neut % (Auto) Lymph % (Auto) [place] % (Auto) Eos % (Auto) Baso % (Auto) Neut # (Auto) Lymph # (Auto) [place] # (Auto) Eos # (Auto) Baso # (Auto) Immature Gran # (Auto) RBC Morphology Peripher Smr Path Cons PT INR APTT PTT Ratio Sodium Potassium Chloride Carbon Dioxide Anion Gap BUN Creatinine Est Cr Clr Drug Dosing Est GFR ( Amer) Est GFR (Non-Af Amer) BUN/Creatinine Ratio Glucose Lactate Calcium Magnesium Total Bilirubin AST ALT Alkaline Phosphatase Troponin I Total Protein Albumin Globulin Albumin/Globulin Ratio Lipase Procalcitonin 21.36 H TSH 0.273 L Free T4 1.53 Urine Color Urine Appearance Urine pH Ur Specific [place] Urine Protein Urine Glucose (UA) Urine Ketones Urine Blood Urine Nitrite Urine Bilirubin Urine Urobilinogen Ur Leukocyte Esterase Urine WBC (Auto) Urine RBC (Auto) U Hyaline Cast (Auto) U Epithel Cells (Auto) Urine Bacteria (Auto) Ur Renal Epithelial Cell Amorphous Sediment Urine Yeast Anaplasma Smear Anaplasma Comment Lyme Disease IgG Ab Negative Lyme Disease IgM Ab Negative E. chaffeensis IgG Ab E. chaffeensis IgM Ab E. chaffeensis Interp E. chaffeensis Comment 01/03/20 01/03/20 01/03/20 20:50 20:50 21:36 WBC RBC Hgb Hct MCV MCH MCHC RDW Std Deviation RDW Coeff of Issa Plt Count MPV Immature Gran % (Auto) Neut % (Auto) Lymph % (Auto) [place] % (Auto) Eos % (Auto) Baso % (Auto) Neut # (Auto) Lymph # (Auto) [place] # (Auto) Eos # (Auto) Baso # (Auto) Immature Gran # (Auto) RBC Morphology Peripher Smr Path Cons PT INR APTT PTT Ratio Sodium Potassium Chloride Carbon Dioxide Anion Gap BUN Creatinine Est Cr Clr Drug Dosing Est GFR ( Amer) Est GFR (Non-Af Amer) BUN/Creatinine Ratio Glucose Lactate 1.8 Calcium Magnesium Total Bilirubin AST ALT Alkaline Phosphatase Troponin I Total Protein Albumin Globulin Albumin/Globulin Ratio Lipase 196 Procalcitonin TSH Free T4 Urine Color Urine Appearance Urine pH Ur Specific [place] Urine Protein Urine Glucose (UA) Urine Ketones Urine Blood Urine Nitrite Urine Bilirubin Urine Urobilinogen Ur Leukocyte Esterase Urine WBC (Auto) Urine RBC (Auto) U Hyaline Cast (Auto) U Epithel Cells (Auto) Urine Bacteria (Auto) Ur Renal Epithelial Cell Amorphous Sediment Urine Yeast Anaplasma Smear Anaplasma Comment Lyme Disease IgG Ab Lyme Disease IgM Ab E. chaffeensis IgG Ab Pending E. chaffeensis IgM Ab Pending E. chaffeensis Interp Pending E. chaffeensis Comment Pending 01/03/20 01/04/20 01/04/20 22:40 01:25 07:21 WBC 6.84 RBC 2.47 L Hgb 7.5 L Hct 22.3 L MCV 90.3 MCH 30.4 MCHC 33.6 RDW Std Deviation 56.5 H RDW Coeff of Issa 17.1 H Plt Count 132 MPV 10.6 H Immature Gran % (Auto) 0.4 Neut % (Auto) 78.6 Lymph % (Auto) 14.8 [place] % (Auto) 6.1 Eos % (Auto) 0.0 Baso % (Auto) 0.1 Neut # (Auto) 5.37 Lymph # (Auto) 1.01 L [place] # (Auto) 0.42 Eos # (Auto) 0.00 Baso # (Auto) 0.01 Immature Gran # (Auto) 0.03 H RBC Morphology Unremarkable Peripher Smr Path Cons PT INR APTT PTT Ratio Sodium Potassium Chloride Carbon Dioxide Anion Gap BUN Creatinine Est Cr Clr Drug Dosing Est GFR ( Amer) Est GFR (Non-Af Amer) BUN/Creatinine Ratio Glucose Lactate Calcium Magnesium Total Bilirubin AST ALT Alkaline Phosphatase Troponin I 0.075 H* Total Protein Albumin Globulin Albumin/Globulin Ratio Lipase Procalcitonin TSH Free T4 Urine Color Dark Yellow Urine Appearance Cloudy A Urine pH 5.5 Ur Specific [place] 1.030 Urine Protein 2+ H Urine Glucose (UA) Negative Urine Ketones Trace H Urine Blood 1+ H Urine Nitrite Negative Urine Bilirubin 1+ H Urine Urobilinogen Negative Ur Leukocyte Esterase Trace H Urine WBC (Auto) 10-30 H Urine RBC (Auto) 0-4 U Hyaline Cast (Auto) 1-5 U Epithel Cells (Auto) >30 H Urine Bacteria (Auto) Negative Ur Renal Epithelial Cell Not Reportable Amorphous Sediment Present A Urine Yeast Not Reportable Anaplasma Smear Anaplasma Comment Lyme Disease IgG Ab Lyme Disease IgM Ab E. chaffeensis IgG Ab E. chaffeensis IgM Ab E. chaffeensis Interp E. chaffeensis Comment 01/04/20 01/04/20 01/04/20 07:21 07:21 13:07 WBC RBC Hgb Hct MCV MCH MCHC RDW Std Deviation RDW Coeff of Issa Plt Count MPV Immature Gran % (Auto) Neut % (Auto) Lymph % (Auto) [place] % (Auto) Eos % (Auto) Baso % (Auto) Neut # (Auto) Lymph # (Auto) [place] # (Auto) Eos # (Auto) Baso # (Auto) Immature Gran # (Auto) RBC Morphology Peripher Smr Path Cons PT INR APTT PTT Ratio Sodium 138 Potassium 3.5 D Chloride 110 H Carbon Dioxide 21 Anion Gap 7.0 BUN 13 Creatinine 0.97 Est Cr Clr Drug Dosing 39.6 Est GFR ( Amer) 66.2 Est GFR (Non-Af Amer) 57.1 BUN/Creatinine Ratio 13.5 Glucose 130 H Lactate Calcium 7.4 L Magnesium 2.0 Total Bilirubin AST ALT Alkaline Phosphatase Troponin I 0.293 H* Pending Total Protein Albumin Globulin Albumin/Globulin Ratio Lipase Procalcitonin TSH Free T4 Urine Color Urine Appearance Urine pH Ur Specific [place] Urine Protein Urine Glucose (UA) Urine Ketones Urine Blood Urine Nitrite Urine Bilirubin Urine Urobilinogen Ur Leukocyte Esterase Urine WBC (Auto) Urine RBC (Auto) U Hyaline Cast (Auto) U Epithel Cells (Auto) Urine Bacteria (Auto) Ur Renal Epithelial Cell Amorphous Sediment Urine Yeast Anaplasma Smear Anaplasma Comment Lyme Disease IgG Ab Lyme Disease IgM Ab E. chaffeensis IgG Ab E. chaffeensis IgM Ab E. chaffeensis Interp E. chaffeensis Comment (1) Fever Fever type: due to other condition Qualified Code(s): R50.81 - Fever presenting with conditions classified elsewhere
--- NOTE | 2020-01-04 12:21 | Cardiology Consultation ---
Date of Consultation January 04, 2020 Assessment & Plan (1) Fever: (2) Elevated troponin: Patient is a 74-year-old female who presents with 11 days history of increasing weakness fatigue and febrile illness. 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 Troponins are mildly elevated but no acute ST segment abnormalities on EKG and echocardiogram demonstrating preserved wall motion and LV function. No current evidence suggest myocarditis or acute coronary syndrome Falling hemoglobin precludes anticoagulation and no current indications Agree with treating underlying infectious process and volume resuscitation We will follow patient hospital History of Present Illness Reason for Consultation: Elevated troponin, acute febrile illness Requesting Physician: Dr Young Attending Physician: Lindsay Young MD History of Present Illness Patient is a 74-year-old female whose past history is not notable for significant cardiac disease. She carries an underlying history of iron deficiency anemia, depression. Patient presents now after approximately 11-day history of intermittent febrile illness with malaise. Patient notes no productive cough or wheeze. Has been seen in the emergency room at [facility] on December 26 and January 01. COVID screen negative Re-presented to [facility] last evening with persistent symptoms of weakness and fatigue, fever . Laboratory studies serially have demonstrated reduced hemoglobin and intermittent thrombocytopenia no significant white cell count elevation. Preliminary studies currently reflect findings consistent with anaplasmosis. Patient is referred due to elevation of troponin Allergies Allergy/AdvReac Type Severity Reaction Status Date / Time No Known Allergies Allergy Unverified 01/03/20 20:34 Home Medications Home Medications Medication Instructions Recorded Confirmed Type escitalopram oxalate [Lexapro] 10 mg PO DAILY 01/03/20 01/03/20 History ondansetron HCl [Zofran] 4 mg PO Q8H 01/03/20 01/03/20 History Patient History Social History Preferred Language: German Communication Ability: Effective [employer] Officer Required: No Beliefs That Will Affect Care: None marital status: Current Living Situation: Spouse Current Living Situation Comment: home with spouse Other Information That Helps Us Care for You: Yes (Tested for covid twice) Feels Safe at Home: Yes Safety Concerns: Feels Safe At This Time Smoking Status: Never smoker Do You Dip or Chew Tobacco: No ; Second Hand Exposure: Yes ; Tobacco Cessation Education Requested by Patient: No Hx Alcohol Use: No Hx Substance Use: No Review of Systems Review of Systems: All systems reviewed & are unremarkable except as noted in HPI & below Physical Exam Constitutional: + ill appearing; no acute distress Eyes: PERRL, conjunctivae normal, anicteric sclerae ENMT: external ear and nose normal, oropharynx normal Neck: trachea midline, no thyromegaly Respiratory: normal respiratory effort, lungs clear to auscultation Cardiovascular: Rate/Rhythm: regular rate and regular rhythm Heart Sounds: normal S1 and normal S2; no gallop and no murmur Palpation: normal PMI Vessels: normal carotid upstroke and radial pulses present; no JVD and no carotid bruit Extremities: no edema Gastrointestinal (Abdomen): normal bowel sounds, soft, nontender, no hepatosplenomegaly Musculoskeletal: no cyanosis or clubbing, extremities motor strength 5/5 Skin: no rashes, warm and dry Neurologic: PERRL, EOMI, accommodation nl, no face palsy, no dysarthria Psychiatric: A+Ox3, euthymic affect Results & Data ([facility]) Vital Signs (Past 12 Hours) Vital Signs Temp Pulse Pulse Resp BP BP BP 01/04/20 12:08 36.5 C 81 17 72/37 L 76/36 L 01/04/20 08:20 90 01/04/20 07:58 37.0 C 86 17 76/44 L 96/41 L 01/04/20 06:29 37.2 C 01/04/20 04:45 39.4 C H 109 H 24 93/57 L 01/04/20 01:30 104 H 01/04/20 01:16 01/04/20 01:09 96 H 18 96/51 L 01/04/20 01:00 37.6 C H 103 H 16 97/59 L Pulse Ox Pulse Ox 01/04/20 12:08 93 01/04/20 08:20 01/04/20 07:58 91 01/04/20 06:29 01/04/20 04:45 90 01/04/20 01:30 01/04/20 01:16 95 01/04/20 01:09 93 01/04/20 01:00 95 Laboratory Results Laboratory Results - last 24 hr 01/03/20 01/03/20 01/03/20 20:50 20:50 20:50 WBC 8.81 RBC 3.03 L Hgb 9.2 L Hct 27.0 L MCV 89.1 MCH 30.4 MCHC 34.1 RDW Std Deviation 55.7 H RDW Coeff of Issa 17.0 H Plt Count 153 MPV 9.9 Immature Gran % (Auto) 0.5 Neut % (Auto) 87.3 Lymph % (Auto) 7.9 [place] % (Auto) 4.1 Eos % (Auto) 0.0 Baso % (Auto) 0.2 Neut # (Auto) 7.69 H Lymph # (Auto) 0.70 L [place] # (Auto) 0.36 Eos # (Auto) 0.00 Baso # (Auto) 0.02 Immature Gran # (Auto) 0.04 H RBC Morphology Peripher Smr Path Cons Pending PT 12.4 H INR 1.2 H APTT 30.2 PTT Ratio 1.1 Sodium 136 Potassium 3.0 L Chloride 104 Carbon Dioxide 23 Anion Gap 9.0 BUN 16 Creatinine 1.07 Est Cr Clr Drug Dosing Not Reportable Est GFR ( Amer) 58.8 Est GFR (Non-Af Amer) 50.7 BUN/Creatinine Ratio 14.5 Glucose 81 Lactate Calcium 8.1 L Magnesium 2.0 Total Bilirubin 1.1 H AST 140 H ALT 87 H Alkaline Phosphatase 175 H Troponin I 0.057 H* Total Protein 7.3 Albumin 2.2 L Globulin 5.1 H Albumin/Globulin Ratio 0.4 L Lipase Procalcitonin TSH Free T4 Urine Color Urine Appearance Urine pH Ur Specific Wells Urine Protein Urine Glucose (UA) Urine Ketones Urine Blood Urine Nitrite Urine Bilirubin Urine Urobilinogen Ur Leukocyte Esterase Urine WBC (Auto) Urine RBC (Auto) U Hyaline Cast (Auto) U Epithel Cells (Auto) Urine Bacteria (Auto) Ur Renal Epithelial Cell Amorphous Sediment Urine Yeast Anaplasma Smear See Comment A Anaplasma Comment Pos for Anaplasma Lyme Disease IgG Ab Lyme Disease IgM Ab E. chaffeensis IgG Ab E. chaffeensis IgM Ab E. chaffeensis Interp E. chaffeensis Comment 01/03/20 01/03/20 01/03/20 20:50 20:50 20:50 WBC RBC Hgb Hct MCV MCH MCHC RDW Std Deviation RDW Coeff of Issa Plt Count MPV Immature Gran % (Auto) Neut % (Auto) Lymph % (Auto) [place] % (Auto) Eos % (Auto) Baso % (Auto) Neut # (Auto) Lymph # (Auto) [place] # (Auto) Eos # (Auto) Baso # (Auto) Immature Gran # (Auto) RBC Morphology Peripher Smr Path Cons PT INR APTT PTT Ratio Sodium Potassium Chloride Carbon Dioxide Anion Gap BUN Creatinine Est Cr Clr Drug Dosing Est GFR ( Amer) Est GFR (Non-Af Amer) BUN/Creatinine Ratio Glucose Lactate Calcium Magnesium Total Bilirubin AST ALT Alkaline Phosphatase Troponin I Total Protein Albumin Globulin Albumin/Globulin Ratio Lipase Procalcitonin 21.36 H TSH 0.273 L Free T4 1.53 Urine Color Urine Appearance Urine pH Ur Specific Wells Urine Protein Urine Glucose (UA) Urine Ketones Urine Blood Urine Nitrite Urine Bilirubin Urine Urobilinogen Ur Leukocyte Esterase Urine WBC (Auto) Urine RBC (Auto) U Hyaline Cast (Auto) U Epithel Cells (Auto) Urine Bacteria (Auto) Ur Renal Epithelial Cell Amorphous Sediment Urine Yeast Anaplasma Smear Anaplasma Comment Lyme Disease IgG Ab Negative Lyme Disease IgM Ab Negative E. chaffeensis IgG Ab E. chaffeensis IgM Ab E. chaffeensis Interp E. chaffeensis Comment 01/03/20 01/03/20 01/03/20 20:50 20:50 21:36 WBC RBC Hgb Hct MCV MCH MCHC RDW Std Deviation RDW Coeff of Issa Plt Count MPV Immature Gran % (Auto) Neut % (Auto) Lymph % (Auto) [place] % (Auto) Eos % (Auto) Baso % (Auto) Neut # (Auto) Lymph # (Auto) [place] # (Auto) Eos # (Auto) Baso # (Auto) Immature Gran # (Auto) RBC Morphology Peripher Smr Path Cons PT INR APTT PTT Ratio Sodium Potassium Chloride Carbon Dioxide Anion Gap BUN Creatinine Est Cr Clr Drug Dosing Est GFR ( Amer) Est GFR (Non-Af Amer) BUN/Creatinine Ratio Glucose Lactate 1.8 Calcium Magnesium Total Bilirubin AST ALT Alkaline Phosphatase Troponin I Total Protein Albumin Globulin Albumin/Globulin Ratio Lipase 196 Procalcitonin TSH Free T4 Urine Color Urine Appearance Urine pH Ur Specific Wells Urine Protein Urine Glucose (UA) Urine Ketones Urine Blood Urine Nitrite Urine Bilirubin Urine Urobilinogen Ur Leukocyte Esterase Urine WBC (Auto) Urine RBC (Auto) U Hyaline Cast (Auto) U Epithel Cells (Auto) Urine Bacteria (Auto) Ur Renal Epithelial Cell Amorphous Sediment Urine Yeast Anaplasma Smear Anaplasma Comment Lyme Disease IgG Ab Lyme Disease IgM Ab E. chaffeensis IgG Ab Pending E. chaffeensis IgM Ab Pending E. chaffeensis Interp Pending E. chaffeensis Comment Pending 01/03/20 01/04/20 01/04/20 22:40 01:25 07:21 WBC 6.84 RBC 2.47 L Hgb 7.5 L Hct 22.3 L MCV 90.3 MCH 30.4 MCHC 33.6 RDW Std Deviation 56.5 H RDW Coeff of Issa 17.1 H Plt Count 132 MPV 10.6 H Immature Gran % (Auto) 0.4 Neut % (Auto) 78.6 Lymph % (Auto) 14.8 [place] % (Auto) 6.1 Eos % (Auto) 0.0 Baso % (Auto) 0.1 Neut # (Auto) 5.37 Lymph # (Auto) 1.01 L [place] # (Auto) 0.42 Eos # (Auto) 0.00 Baso # (Auto) 0.01 Immature Gran # (Auto) 0.03 H RBC Morphology Unremarkable Peripher Smr Path Cons PT INR APTT PTT Ratio Sodium Potassium Chloride Carbon Dioxide Anion Gap BUN Creatinine Est Cr Clr Drug Dosing Est GFR ( Amer) Est GFR (Non-Af Amer) BUN/Creatinine Ratio Glucose Lactate Calcium Magnesium Total Bilirubin AST ALT Alkaline Phosphatase Troponin I 0.075 H* Total Protein Albumin Globulin Albumin/Globulin Ratio Lipase Procalcitonin TSH Free T4 Urine Color Dark Yellow Urine Appearance Cloudy A Urine pH 5.5 Ur Specific Wells 1.030 Urine Protein 2+ H Urine Glucose (UA) Negative Urine Ketones Trace H Urine Blood 1+ H Urine Nitrite Negative Urine Bilirubin 1+ H Urine Urobilinogen Negative Ur Leukocyte Esterase Trace H Urine WBC (Auto) 10-30 H Urine RBC (Auto) 0-4 U Hyaline Cast (Auto) 1-5 U Epithel Cells (Auto) >30 H Urine Bacteria (Auto) Negative Ur Renal Epithelial Cell Not Reportable Amorphous Sediment Present A Urine Yeast Not Reportable Anaplasma Smear Anaplasma Comment Lyme Disease IgG Ab Lyme Disease IgM Ab E. chaffeensis IgG Ab E. chaffeensis IgM Ab E. chaffeensis Interp E. chaffeensis Comment 01/04/20 01/04/20 07:21 07:21 WBC RBC Hgb Hct MCV MCH MCHC RDW Std Deviation RDW Coeff of Issa Plt Count MPV Immature Gran % (Auto) Neut % (Auto) Lymph % (Auto) [place] % (Auto) Eos % (Auto) Baso % (Auto) Neut # (Auto) Lymph # (Auto) [place] # (Auto) Eos # (Auto) Baso # (Auto) Immature Gran # (Auto) RBC Morphology Peripher Smr Path Cons PT INR APTT PTT Ratio Sodium 138 Potassium 3.5 D Chloride 110 H Carbon Dioxide 21 Anion Gap 7.0 BUN 13 Creatinine 0.97 Est Cr Clr Drug Dosing 39.6 Est GFR ( Amer) 66.2 Est GFR (Non-Af Amer) 57.1 BUN/Creatinine Ratio 13.5 Glucose 130 H Lactate Calcium 7.4 L Magnesium 2.0 Total Bilirubin AST ALT Alkaline Phosphatase Troponin I 0.293 H* Total Protein Albumin Globulin Albumin/Globulin Ratio Lipase Procalcitonin TSH Free T4 Urine Color Urine Appearance Urine pH Ur Specific Wells Urine Protein Urine Glucose (UA) Urine Ketones Urine Blood Urine Nitrite Urine Bilirubin Urine Urobilinogen Ur Leukocyte Esterase Urine WBC (Auto) Urine RBC (Auto) U Hyaline Cast (Auto) U Epithel Cells (Auto) Urine Bacteria (Auto) Ur Renal Epithelial Cell Amorphous Sediment Urine Yeast Anaplasma Smear Anaplasma Comment Lyme Disease IgG Ab Lyme Disease IgM Ab E. chaffeensis IgG Ab E. chaffeensis IgM Ab E. chaffeensis Interp E. chaffeensis Comment Diagnostic Findings Preliminary echo demonstrates preserved LV systolic function without wall motion normality no pericardial effusion mild mitral moderate tricuspid (1) Fever Fever type: due to other condition Qualified Code(s): R50.81 - Fever presenting with conditions classified elsewhere
--- NOTE | 2020-01-04 13:09 | Electrocardiogram Report ---
Test Reason : Blood Pressure : / mmHG Vent. Rate : 081 BPM Atrial Rate : 081 BPM P-R Int : 156 ms QRS Dur : 072 ms QT Int : 402 ms P-R-T Axes : 071 047 028 degrees QTc Int : 466 ms Normal sinus rhythm Low voltage QRS Septal infarct , age undetermined Abnormal ECG When compared with ECG of 03-JAN-2020 20:59, (unconfirmed) Septal infarct is now Present Confirmed by Oscar Gonzalez ([id number]) on 01/04/2020 1:09:03 PM Referred By: Troey Medley Confirmed By:Oscar Gonzalez
[2020-01-04] MEDS ORDERED: PROCHLORPERAZINE 5 MG in SYRINGE 4 ML IV ONE (17:45)
[2020-01-04] MEDS ORDERED: LORazepam 0.5 MG TAB PO STA (23:28)
[2020-01-05] MEDS: DOXYCYCLINE HYCLATE 100 MG in DEXTROSE 5% 100 ML IV SCH ×2 (01:26→13:55)
[2020-01-05] MEDS: cefTRIAXone SODIUM 2,000 MG in DEXTROSE 5% 50 ML IV SCH (01:26)
[2020-01-05] MEDS: D5NSS + 20MEQ KCL 20 MEQ/1,000 ML BAG IV SCH (04:48)
[2020-01-05 06:18] LABS: Hematocrit (blood only) 21.4 % (37-47); Hemoglobin 7.2 g/dL (12.0-16.0); Mean Corpuscular Hemoglobin 29.9 pg (25-34); Mean Corpuscular Hgb Conc 33.6 g/dL (32-36); Mean Corpuscular Volume 88.8 fL (80-100); Platelet Count 155 K/uL (130-400); RDW Coefficient of Variation 17.7 % (11.5-14.5); Red Blood Count 2.41 M/uL (4.2-5.4)
[2020-01-05 06:53] LABS: Albumin Level 1.6 gm/dl (3.4-5.0); BUN Creatinine Ratio 9.6 (10-20); Calcium 6.8 mg/dl (8.5-10.1); Creatinine Clr Calc Pharmacy 58.8 ml/min; Est GFR (African American) 99.7; Magnesium 1.9 mg/dl (1.8-2.4); Potassium 3.4 mmol/L (3.5-5.1)
[2020-01-05 06:57] LABS: Albumin Globulin Ratio 0.4 (0.9-2); Bilirubin,Total 0.4 mg/dl (0.2-1); Globulin 4.1 gm/dl (2.5-4.0); Total Protein 5.7 gm/dl (6.4-8.2)
[2020-01-05] MEDS ORDERED: D5W AND 1/2NSS 1,000 ML IV SCH (07:45)
[2020-01-05] MEDS: ESCITALOPRAM OXALATE 10 MG TAB PO SCH (07:57)
[2020-01-05] MEDS ORDERED: POTASSIUM CHLORIDE PWD 20 MEQ PACK PO ONE (08:00)
--- NOTE | 2020-01-05 10:17 | Cardiology Progress Note ---
Date of Service January 05, 2020 Assessment & Plan (1) Fever: (2) Elevated troponin: Patient is a 74-year-old female who presents with 11 days history of increasing weakness fatigue and febrile illness. 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 Troponins are mildly elevated but no acute ST segment abnormalities on EKG and echocardiogram demonstrating preserved wall motion and LV function. No current evidence suggest myocarditis or acute coronary syndrome Falling hemoglobin precludes anticoagulation and no current indications Patient clinically improved with fluid resuscitation and antibiotic therapies. EKG today essentially normal Agree with current plans supplement potassium. Given rise in troponin and now he hemodynamic stability will add low-dose beta- betzaida to prevent arrhythmias. Echocardiogram and EKG do not reflect profound myocarditis Low threshold for transfusion if hemoglobin drops further We will repeat limited echocardiogram in a.m. Subjective Patient was seen and examined, chart, medications, telemetry reviewed. No cardiac complaints. No chest pain or shortness of breath. Blood pressures improved no febrile complaints overnight. Feels somewhat stronger. Physical Exam Constitutional: WD/WN, vitals as above no acute distress Eyes: PERRL, conjunctivae normal, anicteric sclerae ENMT: external ear and nose normal, oropharynx normal Neck: trachea midline, no thyromegaly Respiratory: normal respiratory effort, lungs clear to auscultation Cardiovascular: Rate/Rhythm: regular rate and regular rhythm Heart Sounds: normal S1 and normal S2; no gallop and no murmur Palpation: normal PMI Vessels: normal carotid upstroke and radial pulses present; no JVD and no carotid bruit Extremities: no edema Gastrointestinal (Abdomen): normal bowel sounds, soft, nontender, no hepatosplenomegaly Musculoskeletal: no cyanosis or clubbing, extremities motor strength 5/5 Skin: no rashes, warm and dry Neurologic: PERRL, EOMI, accommodation nl, no face palsy, no dysarthria Psychiatric: A+Ox3, euthymic affect Results & Data Vital Signs (Past 12 Hours) Vital Signs Temp Pulse Pulse Pulse Resp BP BP 01/05/20 08:04 37.3 C 87 18 104/51 L 01/05/20 07:26 85 01/05/20 04:15 37 C 85 20 104/54 L 01/05/20 01:16 01/04/20 23:08 37.3 C 92 H 20 110/52 L Pulse Ox Pulse Ox 01/05/20 08:04 95 01/05/20 07:26 01/05/20 04:15 94 01/05/20 01:16 98 01/04/20 23:08 93 Laboratory Results Laboratory Results - last 24 hr 01/03/20 01/04/20 01/05/20 20:50 13:07 05:54 WBC 6.40 RBC 2.41 L Hgb 7.2 L Hct 21.4 L MCV 88.8 MCH 29.9 MCHC 33.6 RDW Std Deviation 58.0 H RDW Coeff of Issa 17.7 H Plt Count 155 MPV 10.0 Peripher Smr Path Cons Sodium Potassium Chloride Carbon Dioxide Anion Gap BUN Creatinine Est Cr Clr Drug Dosing Est GFR ( Amer) Est GFR (Non-Af Amer) BUN/Creatinine Ratio Glucose Calcium Ionized Calcium Magnesium Total Bilirubin AST ALT Alkaline Phosphatase Troponin I 0.141 H* Total Protein Albumin Globulin Albumin/Globulin Ratio 01/05/20 01/05/20 05:54 08:24 WBC RBC Hgb Hct MCV MCH MCHC RDW Std Deviation RDW Coeff of Issa Plt Count MPV Peripher Smr Path Cons Sodium 142 Potassium 3.4 L Chloride 115 H Carbon Dioxide 20 L Anion Gap 7.0 BUN 6 L D Creatinine 0.67 D Est Cr Clr Drug Dosing 58.8 Est GFR ( Amer) 99.7 Est GFR (Non-Af Amer) 86.0 BUN/Creatinine Ratio 9.6 L Glucose 126 H Calcium 6.8 L Ionized Calcium 1.03 L Magnesium 1.9 Total Bilirubin 0.4 D AST 61 H ALT 45 Alkaline Phosphatase 133 H Troponin I Total Protein 5.7 L D Albumin 1.6 L Globulin 4.1 H Albumin/Globulin Ratio 0.4 L ECG Additional Comments: 05-JAN-2020 06:32:15 [facility]-CCU ROUTINE RETRIEVAL Normal sinus rhythm Low voltage QRS Borderline ECG When compared with ECG of 04-JAN-2020 09:18, Criteria for Septal infarct are no longer Present (1) Fever Fever type: due to other condition Qualified Code(s): R50.81 - Fever presenting with conditions classified elsewhere
[2020-01-05] MEDS: METOPROLOL SUCC 25MG EXT REL TAB PO SCH (11:35)
--- NOTE | 2020-01-05 12:12 | Hospitalist Progress Note ---
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 Likely sepsis + dilutional from fluid resuscitation Will monitor Transfuse PRN to keep Hb >7 (7) Electrolyte abnormality: Hypocalcemia Hypokalemia Replete both and monitor (8) DVT prophylaxis: SCD for now Admission and Anticipated Discharge Date Admission Date: January 03, 2020 Subjective Patient seen and examined Still reports weakness, anorexia Reported one nonbloody loose bowel movement earlier today Reported some sore throat this AM Denied any chest pain, SOB, cough, palpitations Denied any abd pain, nausea, vomiting Physical Exam Constitutional: + well hydrated; no acute distress Eyes: PERRL, conjunctivae normal, anicteric sclerae ENMT: external ear and nose normal, oropharynx normal Respiratory: normal respiratory effort, lungs clear to auscultation Cardiovascular: Rate/Rhythm: regular rate and regular rhythm Heart Sounds: normal S1 and normal S2 Extremities: no pedal edema Gastrointestinal (Abdomen): normal bowel sounds, soft, nontender, no hepatosplenomegaly Musculoskeletal: no cyanosis or clubbing, extremities motor strength 5/5 Neurologic: PERRL, EOMI, accommodation nl, no face palsy, no dysarthria Psychiatric: A+Ox3, euthymic affect Results & Data Results & Data ([facility]) Vital Signs (Past 12 Hours) Vital Signs Temp Pulse Pulse Pulse Resp BP Pulse Ox 01/05/20 08:04 37.3 C 87 18 104/51 L 95 01/05/20 07:26 85 01/05/20 04:15 37 C 85 20 104/54 L 94 01/05/20 01:16 Pulse Ox 01/05/20 08:04 01/05/20 07:26 01/05/20 04:15 07/13/20 01:16 98 Laboratory Results Laboratory Results - last 24 hr 01/03/20 01/05/20 01/05/20 20:50 05:54 05:54 WBC 6.40 RBC 2.41 L Hgb 7.2 L Hct 21.4 L MCV 88.8 MCH 29.9 MCHC 33.6 RDW Std Deviation 58.0 H RDW Coeff of Issa 17.7 H Plt Count 155 MPV 10.0 Peripher Smr Path Cons Sodium 142 Potassium 3.4 L Chloride 115 H Carbon Dioxide 20 L Anion Gap 7.0 BUN 6 L D Creatinine 0.67 D Est Cr Clr Drug Dosing 58.8 Est GFR ( Amer) 99.7 Est GFR (Non-Af Amer) 86.0 BUN/Creatinine Ratio 9.6 L Glucose 126 H Calcium 6.8 L Ionized Calcium Magnesium 1.9 Total Bilirubin 0.4 D AST 61 H ALT 45 Alkaline Phosphatase 133 H Total Protein 5.7 L D Albumin 1.6 L Globulin 4.1 H Albumin/Globulin Ratio 0.4 L 01/05/20 08:24 WBC RBC Hgb Hct MCV MCH MCHC RDW Std Deviation RDW Coeff of Issa Plt Count MPV Peripher Smr Path Cons Sodium Potassium Chloride Carbon Dioxide Anion Gap BUN Creatinine Est Cr Clr Drug Dosing Est GFR ( Amer) Est GFR (Non-Af Amer) BUN/Creatinine Ratio Glucose Calcium Ionized Calcium 1.03 L Magnesium Total Bilirubin AST ALT Alkaline Phosphatase Total Protein Albumin Globulin Albumin/Globulin Ratio (1) Fever Fever type: due to other condition Qualified Code(s): R50.81 - Fever presenting with conditions classified elsewhere (2) Anemia Anemia type: unspecified type Qualified Code(s): D64.9 - Anemia, unspecified
[2020-01-05] MEDS ORDERED: NURSING DECISION MEDICATION ONE (12:52)
[2020-01-05] MEDS ORDERED: COUGH DROP (SUGAR FREE) LOZ 24 LOZ/1 BOX BUCCAL PRN (12:58)
[2020-01-05] MEDS ORDERED: CALCIUM GLUCONATE 10% 1,000 MG in SODIUM CHLORIDE 0.9% 50 ML IV STA (14:01)
--- NOTE | 2020-01-05 14:21 | Electrocardiogram Report ---
Test Reason : Blood Pressure : / mmHG Vent. Rate : 084 BPM Atrial Rate : 084 BPM P-R Int : 160 ms QRS Dur : 080 ms QT Int : 364 ms P-R-T Axes : 070 064 034 degrees QTc Int : 430 ms Normal sinus rhythm Low voltage QRS Borderline ECG Confirmed by Sumit Mejía ([id number]) on 01/05/2020 2:21:18 PM Referred By: Torey Medley Confirmed By:Jabari Mejía
[2020-01-05] MEDS: LORazepam 0.5 MG TAB PO PRN (22:38)
[2020-01-06] MEDS: DOXYCYCLINE HYCLATE 100 MG in DEXTROSE 5% 100 ML IV SCH ×2 (03:52→15:53)
[2020-01-06] MEDS: cefTRIAXone SODIUM 2,000 MG in DEXTROSE 5% 50 ML IV SCH (03:52)
[2020-01-06 05:55] LABS: Hematocrit (blood only) 22.2 % (37-47); Hemoglobin 7.5 g/dL (12.0-16.0); Mean Corpuscular Hgb Conc 33.8 g/dL (32-36); Mean Corpuscular Volume 88.8 fL (80-100); Mean Platelet Volume 9.8 fL (7.4-10.4); Platelet Count 187 K/uL (130-400); RDW Coefficient of Variation 18.1 % (11.5-14.5); RDW Standard Deviation 59.3 fL (36.4-46.3); White Blood Count 6.56 K/uL (4.8-10.8)
[2020-01-06 06:26] LABS: Albumin Level 1.4 gm/dl (3.4-5.0); BUN Creatinine Ratio 6.2 (10-20); Creatinine Clr Calc Pharmacy 61.2 ml/min; Est GFR (African American) 100.7; Est GFR (Non-African American) 86.8; Magnesium 1.9 mg/dl (1.8-2.4); Potassium 3.5 mmol/L (3.5-5.1)
[2020-01-06 06:29] LABS: Albumin Globulin Ratio 0.3 (0.9-2); Bilirubin,Total 0.3 mg/dl (0.2-1); Globulin 4.2 gm/dl (2.5-4.0); Total Protein 5.6 gm/dl (6.4-8.2)
[2020-01-06] MEDS: METOPROLOL SUCC 25MG EXT REL TAB PO SCH (08:05)
[2020-01-06] MEDS: ESCITALOPRAM OXALATE 10 MG TAB PO SCH (08:05)
[2020-01-06 11:38] LABS: Ferritin 144.4 ng/ml (8-388)
[2020-01-06] MEDS ORDERED: CALCIUM GLUCONATE 10% 10 ML VIAL IV STA (11:38)
[2020-01-06 11:39] LABS: Folate (Folic Acid) 12.94 ng/ml (>5.38)
--- NOTE | 2020-01-06 11:39 | Hospitalist Progress Note ---
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 Likely sepsis + dilutional from fluid resuscitation Anemia work up labs ordered Will monitor Transfuse PRN to keep Hb >7 (7) Electrolyte abnormality: Hypocalcemia Hypokalemia Replete both and monitor (8) DVT prophylaxis: SCD for now [facility] Admission and Anticipated Discharge Date Admission Date: January 03, 2020 Subjective Patient reports feeling better Weakness is improving Still has anorexia Denied nausea, vomiting, abd pain Denied cough, chest pain, SOB Denied dysuria, freq, urgency Physical Exam Constitutional: + well hydrated; no acute distress Eyes: PERRL, conjunctivae normal, anicteric sclerae ENMT: external ear and nose normal, oropharynx normal Respiratory: normal respiratory effort, lungs clear to auscultation Cardiovascular: Rate/Rhythm: regular rate and regular rhythm Heart Sounds: normal S1 and normal S2 Extremities: no pedal edema Gastrointestinal (Abdomen): normal bowel sounds, soft, nontender, no hepatosplenomegaly Musculoskeletal: no cyanosis or clubbing, extremities motor strength 5/5 Neurologic: PERRL, EOMI, accommodation nl, no face palsy, no dysarthria Psychiatric: A+Ox3, euthymic affect Results & Data Results & Data ([facility]) Vital Signs (Past 12 Hours) Vital Signs Temp Pulse Pulse Resp BP Pulse Ox 01/06/20 07:48 36.7 C 74 17 112/56 L 90 01/06/20 03:52 36.5 C 77 17 106/51 L 91 Laboratory Results Laboratory Results - last 24 hr 01/06/20 01/06/20 01/06/20 05:28 05:28 10:48 WBC 6.56 RBC 2.50 L Hgb 7.5 L Hct 22.2 L MCV 88.8 MCH 30.0 MCHC 33.8 RDW Std Deviation 59.3 H RDW Coeff of Issa 18.1 H Plt Count 187 MPV 9.8 Haptoglobin Sodium 145 Potassium 3.5 Chloride 117 H Carbon Dioxide 22 Anion Gap 6.0 BUN 4 L Creatinine 0.65 Est Cr Clr Drug Dosing 61.2 Est GFR ( Amer) 100.7 Est GFR (Non-Af Amer) 86.8 BUN/Creatinine Ratio 6.2 L Glucose 92 Calcium 7.0 L Magnesium 1.9 Iron Pending TIBC Pending Ferritin Pending Total Bilirubin 0.3 AST 84 H ALT 55 Alkaline Phosphatase 200 H Lactate Dehydrogenase Total Protein 5.6 L Albumin 1.4 L Globulin 4.2 H Albumin/Globulin Ratio 0.3 L Vitamin B12 Folate 01/06/20 01/06/20 01/06/20 10:48 10:48 10:48 WBC RBC Hgb Hct MCV MCH MCHC RDW Std Deviation RDW Coeff of Issa Plt Count MPV Haptoglobin Pending Sodium Potassium Chloride Carbon Dioxide Anion Gap BUN Creatinine Est Cr Clr Drug Dosing Est GFR ( Amer) Est GFR (Non-Af Amer) BUN/Creatinine Ratio Glucose Calcium Magnesium Iron TIBC Ferritin Total Bilirubin AST ALT Alkaline Phosphatase Lactate Dehydrogenase 196 Total Protein Albumin Globulin Albumin/Globulin Ratio Vitamin B12 Pending Folate Pending (1) Fever Fever type: due to other condition Qualified Code(s): R50.81 - Fever presenting with conditions classified elsewhere (2) Anemia Anemia type: unspecified type Qualified Code(s): D64.9 - Anemia, unspecified
[2020-01-06] MEDS ORDERED: POTASSIUM CHLORIDE PWD 20 MEQ PACK PO ONE (11:44)
[2020-01-06] MEDS ORDERED: CALCIUM GLUCONATE 10% 1,000 MG in SODIUM CHLORIDE 0.9% 50 ML IV ONE (12:00)
--- NOTE | 2020-01-06 13:40 | Cardiology Progress Note ---
Date of Service January 06, 2020 Assessment & Plan (1) Fever: (2) Elevated troponin: Patient is a 74-year-old female who presents with 11 days history of increasing weakness fatigue and febrile illness. 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 Troponins are mildly elevated but no acute ST segment abnormalities on EKG and echocardiogram demonstrating preserved wall motion and LV function. No current evidence suggest myocarditis or acute coronary syndrome Falling hemoglobin precludes anticoagulation and no current indications Patient clinically improved with fluid resuscitation and antibiotic therapies. Echocardiogram reviewed once again demonstrates preserved LV systolic function mild mitral and moderate tricuspid insufficiency. Trivial pericardial effusion Plan is already begun. No signs of acute myocarditis though would continue low- dose beta-betzaida for time being Subjective Patient was seen and examined, chart, medications, telemetry reviewed. No cardiac complaints. Subjectively and objectively appears improved this morning. Hemodynamics improved no febrile complaints Physical Exam Constitutional: WD/WN, vitals as above no acute distress Eyes: PERRL, conjunctivae normal, anicteric sclerae ENMT: external ear and nose normal, oropharynx normal Neck: trachea midline, no thyromegaly Respiratory: normal respiratory effort, lungs clear to auscultation Cardiovascular: Rate/Rhythm: regular rate and regular rhythm Heart Sounds: normal S1 and normal S2; no gallop and no murmur Palpation: normal PMI Vessels: normal carotid upstroke and radial pulses present; no JVD and no carotid bruit Extremities: no edema Gastrointestinal (Abdomen): normal bowel sounds, soft, nontender, no hepatosplenomegaly Musculoskeletal: no cyanosis or clubbing, extremities motor strength 5/5 Skin: no rashes, warm and dry Neurologic: PERRL, EOMI, accommodation nl, no face palsy, no dysarthria Psychiatric: A+Ox3, euthymic affect Results & Data Vital Signs (Past 12 Hours) Vital Signs Temp Pulse Pulse Resp BP Pulse Ox 01/06/20 12:02 36.5 C 76 20 114/65 90 01/06/20 07:48 36.7 C 74 17 112/56 L 90 01/06/20 03:52 36.5 C 77 17 106/51 L 91 Laboratory Results Laboratory Results - last 24 hr 01/06/20 01/06/20 01/06/20 05:28 05:28 10:48 WBC 6.56 RBC 2.50 L Hgb 7.5 L Hct 22.2 L MCV 88.8 MCH 30.0 MCHC 33.8 RDW Std Deviation 59.3 H RDW Coeff of Issa 18.1 H Plt Count 187 MPV 9.8 Haptoglobin Sodium 145 Potassium 3.5 Chloride 117 H Carbon Dioxide 22 Anion Gap 6.0 BUN 4 L Creatinine 0.65 Est Cr Clr Drug Dosing 61.2 Est GFR ( Amer) 100.7 Est GFR (Non-Af Amer) 86.8 BUN/Creatinine Ratio 6.2 L Glucose 92 Calcium 7.0 L Magnesium 1.9 Iron 76 TIBC 180 L Ferritin 144.4 Total Bilirubin 0.3 AST 84 H ALT 55 Alkaline Phosphatase 200 H Lactate Dehydrogenase Total Protein 5.6 L Albumin 1.4 L Globulin 4.2 H Albumin/Globulin Ratio 0.3 L Vitamin B12 Folate 01/06/20 01/06/20 01/06/20 10:48 10:48 10:48 WBC RBC Hgb Hct MCV MCH MCHC RDW Std Deviation RDW Coeff of Issa Plt Count MPV Haptoglobin Pending Sodium Potassium Chloride Carbon Dioxide Anion Gap BUN Creatinine Est Cr Clr Drug Dosing Est GFR ( Amer) Est GFR (Non-Af Amer) BUN/Creatinine Ratio Glucose Calcium Magnesium Iron TIBC Ferritin Total Bilirubin AST ALT Alkaline Phosphatase Lactate Dehydrogenase 196 Total Protein Albumin Globulin Albumin/Globulin Ratio Vitamin B12 1900 H Folate 12.94 (1) Fever Fever type: due to other condition Qualified Code(s): R50.81 - Fever presenting with conditions classified elsewhere
[2020-01-06] MEDS: LORazepam 0.5 MG TAB PO PRN (20:52)
[2020-01-07] MEDS: DOXYCYCLINE HYCLATE 100 MG in DEXTROSE 5% 100 ML IV SCH (02:02)
[2020-01-07 07:32] LABS: Hematocrit (blood only) 24.7 % (37-47); Hemoglobin 8.5 g/dL (12.0-16.0); Mean Corpuscular Hemoglobin 30.6 pg (25-34); Mean Corpuscular Hgb Conc 34.4 g/dL (32-36); Mean Corpuscular Volume 88.8 fL (80-100); Mean Platelet Volume 10.6 fL (7.4-10.4); Platelet Count 234 K/uL (130-400); RDW Coefficient of Variation 18.3 % (11.5-14.5); RDW Standard Deviation 59.7 fL (36.4-46.3); Red Blood Count 2.78 M/uL (4.2-5.4); White Blood Count 8.94 K/uL (4.8-10.8)
[2020-01-07 08:07] LABS: Albumin Level 1.6 gm/dl (3.4-5.0); BUN Creatinine Ratio 10.5 (10-20); Calcium 7.4 mg/dl (8.5-10.1); Creatinine Clr Calc Pharmacy 59.6 ml/min; Est GFR (African American) 100.2; Est GFR (Non-African American) 86.4; Potassium 3.7 mmol/L (3.5-5.1)
[2020-01-07 08:10] LABS: Albumin Globulin Ratio 0.4 (0.9-2); Bilirubin,Total 0.4 mg/dl (0.2-1); Globulin 4.2 gm/dl (2.5-4.0); Total Protein 5.8 gm/dl (6.4-8.2)
[2020-01-07] MEDS: METOPROLOL SUCC 25MG EXT REL TAB PO SCH (08:29)
[2020-01-07] MEDS: ESCITALOPRAM OXALATE 10 MG TAB PO SCH (08:29)
--- NOTE | 2020-01-07 12:41 | Discharge Summary ---
Date of Service January 07, 2020 Admission HPI Per Admitting Provider HISTORY OF PRESENT ILLNESS: This is a 74-year-old female with past medical history significant for osteoporosis, depression, comes because of last 11 days she is having fever every day, some days high, some days low, highest was 104 degrees. She went to the [facility] a couple of times on 12/27/2019 and 01/02/2020. Her COVID test on 12/27/2019 was negative and she had another test done last Sunday with her PCP, but results are still pending. There is question of some UTI and she was started on antibiotic on last visit to [facility]. The patient still has headaches, shortness of breath on exertion, very nauseous, not eating anything, some abdominal discomfort. No diarrhea, no burning micturition, no blood in the stools. No earache, no runny nose, no sore throat, no dysphagia, no loss of sense of smell or taste. No exposure to COVID patients. [place] a [place]. [place], but she never goes outside except for the backyard. Denies any tick bites. Her lab work done at [facility]. Her platelets were 109 on 12/31/2019 and her LFTs are slightly elevated. She has some petechial rash in the abdomen. Imaging studies also done in [facility], CT of the chest and CT abdomen and pelvis were unremarkable. As she was not getting better, she came here. Currently, she is afebrile. She also had leukopenia of 3.0 on labs on December 26 that has improved. Platelets are improved.Today her INR is 1.2. Her total bilirubin 1.1, AST 140, ALT 87, alkaline phosphatase 175 and troponin is 0.05. Procalcitonin was 21.3. Urine is slightly positive for leukocyte esterase. Chest x-ray, no acute disease. Admission Exam Per Admitting Provider PHYSICAL EXAMINATION: GENERAL: The patient is of moderate build, not in acute distress. VITAL SIGNS: Temperature 37.5, pulse 96, respiratory rate 16, blood pressure 101/54, oxygen 96% room air. HEENT: No pallor, no icterus. Pupils equal, round, reactive to light. Oral mucosa dry. NECK: No JVD, no neck masses. CARDIOVASCULAR: S1, S2 heard, regular rate and rhythm, no murmur, no gallop. RESPIRATORY SYSTEM: Normal AP diameter. No accessory muscle use. No wheezing, no crackles. ABDOMEN: Soft, bowel sounds present. Mild discomfort. No guarding, no rigidity. No distention. CENTRAL NERVOUS SYSTEM: Cranial nerves II-XII grossly intact. Nonfocal. EXTREMITIES: No edema, no erythema. SKIN: Mild petechial rash seen in the abdomen. Principal Diagnosis Anaplasmosis Sepsis-resuscitated Anxiety Elevated aminotransferases Discharge Exam CONSTITUTIONAL: WNWD, vitals as above, generally well-appearing EYES: pupils are equal and round bilaterally, normal conjunctivae, no scleral icterus ENT: external ear and nose normal, oropharynx clear, mucous membranes are moist NECK: trachea midline, no lymphadenopathy RESPIRATORY: clear to auscultation bilaterally, no crackles, rales or wheezes, normal respiratory effort CARDIOVASCULAR: regular rate and rhythm, S1 and 2 heard without murmurs, gall ops or rubs, no JVD, no peripheral edema GASTROINTESTINAL: soft, nontender, nondistended, no guarding. MUSCULOSKELETAL: head NC/AT, strength intact throughout, moves independently around the bed with ease, no gross focal deficits. SKIN: warm and dry, no rashes NEUROLOGIC: No facial palsy, no dysarthria. CN 2-12 grossly intact, normal cognition, normal speech, no tremor PSYCHIATRIC: alert cooperative and oriented to person, place and time. Discharge Data Allergies Allergy/AdvReac Type Severity Reaction Status Date / Time No Known Allergies Allergy Unverified 01/03/20 20:34 Consultations 01/03/20 22:15 ED Decision to Admit Stat 01/04/20 01:16 Consult Case Management - Discharge Planning Routine 01/04/20 08:00 Consult Cardiology Routine Hospital Course (1) Sepsis: (2) Anaplasmosis: (3) Abnormal LFTs: (4) Elevated troponin: (5) Anemia: 74-year-old female presented to the hospital with a fever of 104 F. She had been to the ER two times in the prior two weeks. Her COVID test on 12/26 was negative. She was started on antibiotic as outpatient for a possible UTI however symptoms of headache, shortness of breath on exertion, nausea, generalized abdominal discomfort persisted. She was admitted to the hospitalist service and started on IV Rocephin and IV doxycycline empirically for concern of a tickborne illness. COVID was rechecked and negative. Notably leukopenia at a previous ER visit had resolved. She did have mildly elevated LFTs. She was found to be positive for Anaplasma and doxycycline was continued. She did have a mildly elevated troponin and cardiology was consulted. No acute ST segment abnormalities were seen on EKG and echocardiogram demonstrated preserved wall motion and left ventricular function. She was started on Toprol-XL 12.5 mg p.o. daily to be taken for the next 30 days. No follow-up as outpatient with cardiology was recommended unless persistent symptoms post antibiotic course. Serology for ehrlichiosis was pending at time of discharge. At time of discharge she was mentating and ambulating at baseline and tolerating p.o. She was discharged in stable condition with close primary care follow-up recommended within 1 week. She was given 7 additional days of doxycycline for total of 10 days. Notably the patient has a history of anxiety and depression, currently on Lexapro. She requested continuation of Xanax nightly as needed anxiety/insomnia at time of discharge. She was counseled on the addictive properties of benzodiazepines including the manipulation of the nervous system and overall tolerance that can occur over time. She verbalized understanding of the risks of this medication, and understands this will be a temporary solution until she can further discuss this with her primary care provider. She notably had slightly elevated liver enzymes likely secondary to Anaplasma infection. This should be followed by primary care physician within the next month. She also had anemia that was noted during hospitalization, and improved. At time of discharge her H&H was 8.5/24.7 with a normal MCV. Iron saturation was 42%. Close primary care follow-up with a repeat CBC is recommended. Total Time Total Time Spent Total Time Spent (In Minutes): 60 Total Time Includes: Examination of the Patient, Discharge Planning, Medication Reconciliation and Communication With Other Providers Discharge Plan Discharge Items Patient Disposition: Home - Self-Care Reason For Visit: FEVERS Discharge Diagnosis: Anaplasma infection Condition on Discharge: Good Activity: Resume your previous activity Non-emergency contact: Primary Care Provider Call non-emergency contact if: you have any medication questions, your symptoms worsen, your pain is not controlled, your pain is worsening, your pain is unusual for you, your pain is concerning for you and you have a fever Follow-up/Referrals: Torey Medley PA-C [Primary Care Provider] - (Your physician's office at [facility] will call you with a hospital discharge follow up appointment. is the number to call should you not hear from them.) Diet: Regular Addtl Attending Provider Instructions: Please take all medications as instructed on discharge list below. You will need to complete the full course of antibiotics as prescribed. It is recommended to take the antibiotic with food to avoid gastrointestinal upset. Please don't take any supplements within two hours of taking this medication. You were started on a low dose beta betzaida to take for the next 30 days. Follow-up with your primary care provider should be sufficient. No follow-up with Cardiology is needed. As we discussed, you will be given a small amount of Xanax to take as needed until you are able to see your primary care provider and discuss the best long- term option to treat your anxiety/insomnia. It is recommended that you follow-up with your primary care provider within one week of discharge from the hospital. It was a pleasure taking care of you! Please call if you have any questions or problems. You can reach a [facility] hospitalist on duty at [facility] 24 hours a day by calling [phone]. Take care of yourself. Tiffany Shabazz DO [facility] Hospitalist Pending Studies at Discharge: No Stand-Alone Forms: [facility], Smoking Cessation Medications and DC Order Prescriptions: New lorazepam 0.5 mg Tablet 0.5 mg PO HS PRN (Reason: severe anxiety) Qty: 10 RF: 0 doxycycline hyclate 100 mg capsule 100 mg PO BID Qty: 14 RF: 0 metoprolol succinate 25 mg Tablet Extended Release 24 Hr 12.5 mg PO QAM Qty: 30 RF: 2 Continued ondansetron HCl [Zofran] 4 mg Tablet 4 mg PO Q8H RF: 0 escitalopram oxalate [Lexapro] 10 mg Tablet 10 mg PO DAILY RF: 0 Discharge Orders: Discharge Order (Routine); Ordered 01/07/20 Ordered By: Tiffany Shabazz Admission Data Admit Date/Time: 01/03/20 23:09 Attending Provider: Tiffany Shabazz Admit Provider: Lindsay Young I. Primary Care Provider: Torey Medley Other Providers: Raúl Oliveros ; Lyndon Salgado ; Ren Larry ; Pepe Iqbal ; Mauro Mixon ; Vin Vora ; Adam Mae ; Lisandra Gonsalves ; Patria Pa ; Goldy Prather
[2020-01-08 20:14] LABS: Ehrlichia chaff IgG Ab <1:64 (<1:64); Ehrlichia chaff IgM Ab <1:20 (<1:20)
== END 2020-01-07 13:35 | disposition home or self-care (01) | DRG 872 ==
LOC: ED 19:55 → SUATTDRO 23:09 → 2N 23:09 → 2E 01-04 13:04 → 2N 01-06 17:34